=== PATIENT | male | born 1960 | race Caucasian/White ===

== ENCOUNTER 2020-09-09 12:29 | Emergency (ER) | payer OTHER ==
[2020-09-09 12:48] VITALS: BP 144/75; PULSE 70; TEMP 98.8; BMI 24.7
[2020-09-09] MEDS ORDERED: CIPROFLOXACIN 250 MG TABLET (RESTRICTED TO ID) PO ONE ×2 (13:36→13:40)
== END 2020-09-09 14:00 | disposition home or self-care (01) ==
LOC: FER 12:29
DX: L03.032 Cellulitis of left toe (principal)
CPT/HCPCS: 99283-25

== ENCOUNTER 2020-10-22 09:40 | Emergency (ER) | payer OTHER ==
[2020-10-22] MEDS ORDERED: ACETAMINOPHEN 500 MG TABLET (FP) PO ONE (09:51)
[2020-10-22 09:56] VITALS: BP 125/89; PULSE 71; TEMP 98.4; BMI 24.3
[2020-10-22] MEDS ORDERED: ACETAMINOPHEN 500 MG TABLET (FP) ONE (09:59)
== END 2020-10-22 10:44 | disposition home or self-care (01) ==
LOC: FER 09:40
DX: R07.81 Pleurodynia (principal); V19.9XXA Pedal cyclist (driver) (passenger) injured in unspecified traffic accident, initial encounter
CPT/HCPCS: 71046-TC-FY; 71101-TC-RT-FY; 99283-25

== ENCOUNTER 2023-05-06 23:13 | Emergency (ER) | payer OTHER ==
[2023-05-06] MEDS ORDERED: ONDANSETRON 4 MG/2 ML VIAL ONE (23:27)
[2023-05-06] MEDS: SODIUM CHLORIDE 1,000 ML IV STA (23:33)
[2023-05-06] MEDS: ONDANSETRON 4 MG/2 ML VIAL IVPUSH ONE (23:33)
[2023-05-06 23:34] LABS: HEMOGLOBIN 17.1 G/dL (11.7-16.9); MCH 33.8 pg (25.7-33.7); MCHC 34.9 g/dl (32.0-35.9); MEAN CELL VOLUME 96.9 fl (80-96); MEAN PLT VOLUME 7.7 fl (7.5-11.1); PLATELET COUNT 189.8 10^3/uL (134-434); RBC 5.06 10^6/uL (4.00-5.60); RDW 14.5 % (11.9-15.9); WHITE BLOOD COUNT 8.1 10^3/uL (4.0-10.8)
[2023-05-06 23:38] VITALS: BP 127/90; PULSE 66; RESP 16; TEMP 98; BMI 24.3
[2023-05-06 23:45] LABS: PLATELET ESTIMATE ADEQUATE
[2023-05-06 23:52] LABS: ALBUMIN 5.1 g/dl (3.4-5.0); BILIRUBIN,TOTAL 0.9 mg/dl (0.2-1); CALCIUM 10.3 mg/dl (8.5-10.1); TOT PROT 7.9 g/dl (6.4-8.2)
[2023-05-07] MEDS ORDERED: ACETAMINOPHEN INJECTION 100 ML IVPB ONE (00:06)
[2023-05-07] MEDS: ACETAMINOPHEN 1000 MG/100 ML BAG IVPB ONE (00:10)
[2023-05-07] MEDS: SODIUM CHLORIDE 1,000 ML IV STA (00:26)
[2023-05-07] MEDS ORDERED: KETOROLAC TROMETHAMINE 30 MG/1 ML VIAL ONE (01:07)
[2023-05-07] MEDS: KETOROLAC TROMETHAMINE 30 MG/1 ML VIAL IVPUSH ONE (01:15)
== END 2023-05-07 01:22 | disposition home or self-care (01) ==
LOC: FER 23:13
PROC: 3E033GC Introduction of Other Therapeutic Substance into Peripheral Vein, Percutaneous Approach (ICD-10-PCS; 2023-05-06)
PROC: 3E0337Z Introduction of Electrolytic and Water Balance Substance into Peripheral Vein, Percutaneous Approach (ICD-10-PCS; 2023-05-06)
PROC: 3E033NZ Introduction of Analgesics, Hypnotics, Sedatives into Peripheral Vein, Percutaneous Approach (ICD-10-PCS; principal; 2023-05-07)
PROC: 3E0333Z Introduction of Anti-inflammatory into Peripheral Vein, Percutaneous Approach (ICD-10-PCS; 2023-05-07)
PROC: 3E0337Z Introduction of Electrolytic and Water Balance Substance into Peripheral Vein, Percutaneous Approach (ICD-10-PCS; 2023-05-07)
DX: R10.84 Generalized abdominal pain (principal); R11.10 Vomiting, unspecified; K52.9 Noninfective gastroenteritis and colitis, unspecified
CPT/HCPCS: 36415; 80053; 85027; 96360; 96374; 96375; 99284-25; J0131